=== PATIENT | female | born 1965 | race Caucasian/White ===

== ENCOUNTER → 2021-09-13 | Emergency (ER) | payer OTHER ==
[~2021-09-13] VITALS: Ht 160 cm; Wt 72.1 kg
[~2021-09-13] MED LIST: BRILINTA90 MG; CHILDREN'S ASPI81 MG; COZAAR50 MG; KETO10TA2 PO; NEXIUM 24HR20 M1; TINACTIN108 GM TOP; TOPROL XL25 M1; ZOLPIDEM TARTR3.5 MG PO
== END | disposition left against medical advice (07) ==
LOC: ER 02:02
DX: Z53.21 Procedure and treatment not carried out due to patient leaving prior to being seen by health care provider (principal)